=== PATIENT | female | born 1950 ===

== ENCOUNTER 2018-06-15 06:26 | Inpatient (IN) | payer MEDICARE, OTHER ==
[2018-06-15 07:13] LABS: BASO # 0.1 K/uL (0.0-0.2); BASO % 0.4 % (0.0-2.0); EOS # 0.1 K/uL (0.0-0.7); EOS % 0.5 % (0.0-4.0); HEMOGLOBIN 14.8 g/dL (11.0-16.0); LYMPH # 2.4 K/uL (1.0-4.3); LYMPH % 11.4 % (20.0-40.0); MEAN CELL VOLUME 85.4 fL (81.0-99.0); MEAN CORPUSCULAR HEMOGLOBIN 28.4 pg (27.0-31.0); MEAN CORPUSCULAR HGB CONC 33.2 g/dL (33.0-37.0); MEAN PLATELET VOLUME 7.7 fL (7.2-11.7); MONO # 1.3 K/uL (0.0-0.8); MONO % 6.2 % (0.0-10.0); NEUT # 17.5 K/uL (1.8-7.0); NEUT % 81.5 % (50.0-75.0); PLATELET COUNT 311 K/uL (130-400); RBC 5.23 Mil/uL (3.80-5.20); RED CELL DISTRIBUTION WIDTH 13.8 % (11.5-14.5); WHITE BLOOD COUNT 21.5 K/uL (4.8-10.8)
[2018-06-15 07:40] LABS: ALB/GLOB RATIO 1.4 (1.0-2.1); ALBUMIN 4.7 g/dL (3.5-5.0); ALT/SGPT 30 U/L (9-52); AMYLASE 84 U/L (30-110); AST/SGOT 33 U/L (14-36); BLOOD UREA NITROGEN 18 mg/dL (7-17); CALCIUM 9.6 mg/dl (8.6-10.4); GFR NON-AFRICAN AMERICAN > 60; LIPASE 109 U/L (23-300)
--- NOTE | 2018-06-15 07:58 | C.PDOC ---
History Of Present Illness 67 years old female with PMHx of diabetes presents to ED for complaints of diffuse abdominal pain associated with vomiting and diarrhea that began last night. Denies fever, allergies, or recent travel. Patient states she has been no n-compliant with her diabetes medication for the past 2 days. Time Seen by Provider: 06/15/18 07:17 Chief Complaint (Nursing): Abdominal Pain History Per: Patient History/Exam Limitations: no limitations Onset/Duration Of Symptoms: Hrs Location Of Pain/Discomfort: Diffuse Radiation Of Pain To:: None Associated Symptoms: Nausea, Vomiting, Diarrhea. denies: Fever, Chills Exacerbating Factors: None Alleviating Factors: None Last Bowel Movement: Today Recent travel outside of the [place]: No Abnormal Vaginal Bleeding: No Past Medical History Reviewed: Historical Data, Nursing Documentation, Vital Signs Vital Signs: Last Vital Signs Temp 98.5 F 06/15/18 06:38 Pulse 59 L 06/15/18 07:37 Resp 14 06/15/18 07:37 BP 146/63 06/15/18 07:37 Pulse Ox 95 06/15/18 07:37 - Medical History PMH: No Chronic Diseases Denies: Chronic Kidney Disease Surgical History: Family History: States: No Known Family Hx - Social History Hx Alcohol Use: No Hx Substance Use: No - Immunization History Hx Tetanus Toxoid Vaccination: Yes Hx Influenza Vaccination: Yes Hx Pneumococcal Vaccination: Yes Review Of Systems Constitutional: Negative for: Fever, Chills Gastrointestinal: Positive for: Nausea, Vomiting, Abdominal Pain, Diarrhea Skin: Negative for: Rash Neurological: Negative for: Weakness, Numbness Physical Exam - Physical Exam Appears: Non-toxic, No Acute Distress, Other (Uncomfortable ) Skin: Normal Color, Warm, Dry, No Rash Head: Atraumatic, Normacephalic Eye(s): bilateral: Normal Inspection, PERRL, EOMI Oral Mucosa: Moist Neck: Normal ROM, Supple Chest: Symmetrical, No Tenderness Cardiovascular: Rhythm Regular Respiratory: Normal Breath Sounds, No Rales, No Rhonchi, No Wheezing Gastrointestinal/Abdominal: Normal Exam, Bowel Sounds (Active ), Soft, No Tenderness, No Distention, No Guarding, No Rebound Back: Normal Inspection, No CVA Tenderness Extremity: Normal ROM, No Swelling Extremity: Bilateral: Atraumatic, Normal Color And Temperature, Normal ROM Pulses: Left Radial: Normal, Right Radial: Normal Neurological/Psych: Oriented x3, Normal Speech, Normal Motor, Normal Sensation Gait: Steady ED Course And Treatment - Laboratory Results Result Diagrams: 06/15/18 07:05 06/15/18 07:05 O2 Sat by Pulse Oximetry: 95 (RA) Pulse Ox Interpretation: Normal - CT Scan/US Abdomen/Pelvis CT Other Rad Studies (CT/US): Read By Radiologist, Radiology Report Reviewed CT/US Interpretation: Date of service: 06/15/2018. PROCEDURE: CT Abdomen and Pelvis with contrast. HISTORY: abd pain, vomiting. COMPARISON: None. TECHNIQUE: Contrast dose: 100 mL Visipaque 320. Radiation dose: Total exam DLP = 321.99 mGy-cm. This CT exam was performed using one or more of the following dose reduction techniques: Automated exposure control, adjustment of the mA and/or kV according to patient size, and/or use of iterative reconstruction technique. FINDINGS: LOWER THORAX: Unremarkable. LIVER: Unremarkable. No gross lesion or ductal dilatation. GALLBLADDER AND BILE DUCTS: Unremarkable. PANCREAS: Unremarkable. No gross lesion or ductal dilatation. SPLEEN: Unremarkable. ADRENALS: Unremarkable. No mass. KIDNEYS AND URETERS: Unremarkable. No hydronephrosis. No solid mass. VASCULATURE: Unremarkable. No aortic aneurysm. No aortic atherosclerotic calcification or mural plaque present. BOWEL: Unremarkable. No obstruction. No gross mural thickening. APPENDIX: Distension of the appendix up to 9 mm diameter. Enhancing wall. There is both gas and liquid seen within the appendiceal lumen. No significant periappendiceal stranding. Findings concerning for acute appendicitis. No periappendiceal abscess. No evidence of free intraperitoneal air. No appendicoliths identified. PERITONEUM: Unremarkable. No free fluid. No free air. LYMPH NODES: Unremarkable. No enlarged lymph nodes. BLADDER: Unremarkable. REPRODUCTIVE: Normal uterus. BONES: No acute fracture. Grade 1 anterolisthesis at L5-S1, likely degenerative in origin. OTHER FINDINGS: None. IMPRESSION: Findings concerning for uncomplicated acute appendicitis. No other significant abnormality. Medical Decision Making Medical Decision Making: Plan: * Morphine * Pepcid * Toradol * Zofran * Blood Gas * CT Abdomen&Pelvis * Blood work * Urinalysis WBC is elevated with bandemia. will order CT scan CT scan reveals acute appendicitis. The case was discussed with Dr. Tejas Grayson who agrees to admit the patient for possible surgery. Disposition - Disposition Disposition: HOSPITALIZED Disposition Time: 10:00 Condition: STABLE - POA Present On Arrival: None - Clinical Impression Clinical Impression: Acute appendicitis, Leukocytosis - PA / IMPROVEMENT SPEC / Resident Statement MD/DO has reviewed & agrees with the documentation as recorded. - Scribe Statement The provider has reviewed the documentation as recorded by the Fabriceibtorey Lambert All medical record entries made by the Fabriceibtorey were at my direction and personally dictated by me. I have reviewed the chart and agree that the record accurately reflects my personal performance of the history, physical exam, medical decision making, and the department course for this patient. I have also personally directed, reviewed, and agree with the discharge instructions and disposition.
[2018-06-15 08:45] LABS: SQUAMOUS EPITHIAL 4 /hpf (0-5); URINE BACTERIA RARE (<OCC); URINE BILIRUBIN NEGATIVE (NEGATIVE); URINE BLOOD NEGATIVE (NEGATIVE); URINE CLARITY Hazy (Clear); URINE COLOR Yellow (YELLOW); URINE GLUCOSE (UA) 1+ mg/dL (Normal); URINE LEUKOCYTE ESTERASE 1+ Leu/uL (Negative); URINE PROTEIN 1+ mg/dL (NEGATIVE); URINE UROBILINOGEN NORMAL mg/dL (0.2-1.0)
[2018-06-15] MEDS ORDERED: Iodixanol 320 MG/ML 100 ML BOTTLE IV ONE (08:50)
[2018-06-15 08:54] LABS: VENOUS BLOOD GAS BASE EXCESS 2.5 mmol/L (0.0-2.0); VENOUS BLOOD GAS PCO2 53 mmHg (40-60); VENOUS BLOOD GAS PO2 31 mm/Hg (30-55); VENOUS BLOOD PH 7.35 (7.32-7.43)
--- NOTE | 2018-06-15 09:33 | CT ---
Date of service: 06/15/2018 PROCEDURE: CT Abdomen and Pelvis with contrast HISTORY: abd pain, vomiting COMPARISON: None. TECHNIQUE: Contrast dose: 100 mL Visipaque 320 Radiation dose: Total exam DLP = 321.99 mGy-cm. This CT exam was performed using one or more of the following dose reduction techniques: Automated exposure control, adjustment of the mA and/or kV according to patient size, and/or use of iterative reconstruction technique. FINDINGS: LOWER THORAX: Unremarkable. LIVER: Unremarkable. No gross lesion or ductal dilatation. GALLBLADDER AND BILE DUCTS: Unremarkable. PANCREAS: Unremarkable. No gross lesion or ductal dilatation. SPLEEN: Unremarkable. ADRENALS: Unremarkable. No mass. KIDNEYS AND URETERS: Unremarkable. No hydronephrosis. No solid mass. VASCULATURE: Unremarkable. No aortic aneurysm. No aortic atherosclerotic calcification or mural plaque present. BOWEL: Unremarkable. No obstruction. No gross mural thickening. APPENDIX: Distension of the appendix up to 9 mm diameter. Enhancing wall. There is both gas and liquid seen within the appendiceal lumen. No significant periappendiceal stranding. Findings concerning for acute appendicitis. No periappendiceal abscess. No evidence of free intraperitoneal air. No appendicoliths identified. PERITONEUM: Unremarkable. No free fluid. No free air. LYMPH NODES: Unremarkable. No enlarged lymph nodes. BLADDER: Unremarkable. REPRODUCTIVE: Normal uterus BONES: No acute fracture. Grade 1 anterolisthesis at L5-S1, likely degenerative in origin. OTHER FINDINGS: None. IMPRESSION: Findings concerning for uncomplicated acute appendicitis. No other significant abnormality.
[2018-06-15 09:57] LABS: BANDS 9 % (0-2); EOSINOPHIL 1 % (0-4); LYMPHOCYTE 12 % (20-40); MONOCYTE 5 % (0-10); NEUTROPHIL 72 % (50-75); REACTIVE LYMPHOCYTES 1 % (0-0); TOTAL CELLS COUNTED 100
[2018-06-15 09:58] LABS: PLATELET ESTIMATE NORMAL (NORMAL)
[2018-06-15] MEDS ORDERED: Piperacillin/Tazobact 3.375 gm 100 ML IV STA (10:16)
[2018-06-15] MEDS ORDERED: Piperacillin/Tazobact 3.375 gm 100 ML IVPB ONE (10:42)
--- NOTE | 2018-06-15 11:08 | CP.PCM.HP ---
<Remberto Latham Aria - Last Filed: 06/15/18 11:02> History of Present Illness - History of Present Illness History of Present Illness: General Surgery: Dr Grayson Pt is a 67F with PMH of diabetes type II. Presents to ED with acute onset abdominal pain. Pt reports she woke up around 1am with sharp RLQ pain. She immediately began to vomit, non-billious and non-bloody. This was subsequently followed by multiple episodes of diarrhea with continued 9/10 pain prompting her ED visit. Pt states pain located primarily in RLQ but does radiate up to RUQ and epigastric region. Her vomiting has subsided at this point. Denies any fevers, chills, sob or chest pain. PMH: DM2 PSH: x 2 NKDA Unknown PCP Present on Admission - Present on Admission Any Indicators Present on Admission: No History of DVT/PE: No Urinary Catheter: No Decubitus Ulcer Present: No Review of Systems - Review of Systems All systems: reviewed and no additional remarkable complaints except (as per hpi) Past Patient History - Infectious Disease Hx of Infectious Diseases: None - Past Social History Smoking Status: Never Smoked - CARDIAC Hx Cardiac Disorders: No - PULMONARY Hx Respiratory Disorders: No - NEUROLOGICAL Hx Neurological Disorder: No - HEENT Hx HEENT Problems: No - RENAL Hx Chronic Kidney Disease: No - ENDOCRINE/METABOLIC Hx Diabetes Mellitus Type 2: Yes - HEMATOLOGICAL/ONCOLOGICAL Hx Blood Disorders: No - INTEGUMENTARY Hx Dermatological Problems: No - MUSCULOSKELETAL/RHEUMATOLOGICAL Hx Musculoskeletal Disorders: No - GASTROINTESTINAL Hx Gastrointestinal Disorders: No - GENITOURINARY/GYNECOLOGICAL Hx Genitourinary Disorders: No - PSYCHIATRIC Hx Substance Use: No - SURGICAL HISTORY Hx Surgeries: Yes Hx Section: Yes - ANESTHESIA Hx Anesthesia: Yes Hx Anesthesia Reactions: No Meds Allergies/Adverse Reactions: Allergies Allergy/AdvReac Type Severity Reaction Status Date / Time No Known Allergies Allergy Verified 06/15/18 06:41 Physical Exam - Constitutional Appears: Non-toxic, No Acute Distress - Head Exam Head Exam: NORMAL INSPECTION - Eye Exam Eye Exam: Normal appearance - ENT Exam ENT Exam: Mucous Membranes Dry - Respiratory Exam Respiratory Exam: absent: Accessory Muscle Use, Respiratory Distress - Cardiovascular Exam Cardiovascular Exam: REGULAR RHYTHM - GI/Abdominal Exam GI & Abdominal Exam: Soft, Tenderness (RLQ, -rebound, -rosvings). absent: Distended, Firm, Guarding, Hernia, Rigid - Extremities Exam Extremities exam: Negative for: pedal edema - Neurological Exam Neurological exam: Alert, Oriented x3 - Psychiatric Exam Psychiatric exam: Normal Affect, Normal Mood Results - Vital Signs Recent Vital Signs: Last Vital Signs Temp 98.5 F 06/15/18 06:38 Pulse 59 L 06/15/18 07:37 Resp 14 06/15/18 07:37 BP 146/63 06/15/18 07:37 Pulse Ox 95 06/15/18 09:41 - Labs Result Diagrams: 06/15/18 07:05 06/15/18 07:05 Labs: Laboratory Results - last 24 hr 06/15/18 06/15/18 06/15/18 06:42 07:05 07:05 WBC 21.5 H RBC 5.23 H Hgb 14.8 Hct 44.7 MCV 85.4 MCH 28.4 MCHC 33.2 RDW 13.8 Plt Count 311 MPV 7.7 Neut % (Auto) 81.5 H Lymph % (Auto) 11.4 L Lewis % (Auto) 6.2 Eos % (Auto) 0.5 Baso % (Auto) 0.4 Neut # (Auto) 17.5 H Lymph # (Auto) 2.4 Lewis # (Auto) 1.3 H Eos # (Auto) 0.1 Baso # (Auto) 0.1 Neutrophils % (Manual) 72 Band Neutrophils % 9 H Lymphocytes % (Manual) 12 L Reactive Lymphs % 1 H Monocytes % (Manual) 5 Eosinophils % (Manual) 1 Platelet Estimate Normal RBC Morphology Normal pO2 VBG pH VBG pCO2 VBG HCO3 VBG Total CO2 VBG O2 Sat (Calc) VBG Base Excess VBG Potassium Glucose Lactate Sodium 139 Potassium 3.2 L Chloride 99 Carbon Dioxide 26 Anion Gap 17 BUN 18 H Creatinine 0.6 L Est GFR ( Amer) > 60 Est GFR (Non-Af Amer) > 60 POC Glucose (mg/dL) 246 H Random Glucose 237 H Calcium 9.6 Total Bilirubin 0.3 AST 33 ALT 30 Alkaline Phosphatase 163 H Total Protein 8.2 Albumin 4.7 Globulin 3.5 Albumin/Globulin Ratio 1.4 Amylase 84 Lipase 109 Venous Blood Potassium Urine Color Urine Clarity Urine pH Ur Specific [place] Urine Protein Urine Glucose (UA) Urine Ketones Urine Blood Urine Nitrate Urine Bilirubin Urine Urobilinogen Ur Leukocyte Esterase Urine WBC (Auto) Ur Squamous Epith Cells Urine Bacteria 06/15/18 06/15/18 08:33 08:51 WBC RBC Hgb Hct MCV MCH MCHC RDW Plt Count MPV Neut % (Auto) Lymph % (Auto) Lewis % (Auto) Eos % (Auto) Baso % (Auto) Neut # (Auto) Lymph # (Auto) Lewis # (Auto) Eos # (Auto) Baso # (Auto) Neutrophils % (Manual) Band Neutrophils % Lymphocytes % (Manual) Reactive Lymphs % Monocytes % (Manual) Eosinophils % (Manual) Platelet Estimate RBC Morphology pO2 31 VBG pH 7.35 VBG pCO2 53 VBG HCO3 25.7 VBG Total CO2 30.9 H VBG O2 Sat (Calc) 57.1 VBG Base Excess 2.5 H VBG Potassium 3.8 Glucose 229 H Lactate 2.3 H Sodium 141.0 Potassium Chloride 102.0 Carbon Dioxide Anion Gap BUN Creatinine Est GFR ( Amer) Est GFR (Non-Af Amer) POC Glucose (mg/dL) Random Glucose Calcium Total Bilirubin AST ALT Alkaline Phosphatase Total Protein Albumin Globulin Albumin/Globulin Ratio Amylase Lipase Venous Blood Potassium 3.8 Urine Color Yellow Urine Clarity Hazy Urine pH 5.0 Ur Specific [place] 1.021 Urine Protein 1+ H Urine Glucose (UA) 1+ Urine Ketones Negative Urine Blood Negative Urine Nitrate Negative Urine Bilirubin Negative Urine Urobilinogen Normal Ur Leukocyte Esterase 1+ H Urine WBC (Auto) 11 H Ur Squamous Epith Cells 4 Urine Bacteria Rare Assessment & Plan - Assessment and Plan (Free Text) Assessment: 67F with acute appendicitis Plan: admit NPO IVF K replacement type and screen, coags, ekg, CXR plan for OR for lap appendectomy d/w attending Noa, PGY4 <Tejas Grayson - Last Filed: 06/15/18 12:30> Results - Vital Signs Recent Vital Signs: Last Vital Signs Temp 98.5 F 06/15/18 11:24 Pulse 93 H 06/15/18 11:24 Resp 18 06/15/18 11:24 BP 106/63 06/15/18 11:24 Pulse Ox 100 06/15/18 11:24 - Labs Result Diagrams: 06/15/18 07:05 06/15/18 07:05 Labs: Laboratory Results - last 24 hr 1206/15/18 06/15/18 06:42 07:05 07:05 WBC 21.5 H RBC 5.23 H Hgb 14.8 Hct 44.7 MCV 85.4 MCH 28.4 MCHC 33.2 RDW 13.8 Plt Count 311 MPV 7.7 Neut % (Auto) 81.5 H Lymph % (Auto) 11.4 L Lewis % (Auto) 6.2 Eos % (Auto) 0.5 Baso % (Auto) 0.4 Neut # (Auto) 17.5 H Lymph # (Auto) 2.4 Lewis # (Auto) 1.3 H Eos # (Auto) 0.1 Baso # (Auto) 0.1 Neutrophils % (Manual) 72 Band Neutrophils % 9 H Lymphocytes % (Manual) 12 L Reactive Lymphs % 1 H Monocytes % (Manual) 5 Eosinophils % (Manual) 1 Platelet Estimate Normal RBC Morphology Normal pO2 VBG pH VBG pCO2 VBG HCO3 VBG Total CO2 VBG O2 Sat (Calc) VBG Base Excess VBG Potassium Glucose Lactate Sodium 139 Potassium 3.2 L Chloride 99 Carbon Dioxide 26 Anion Gap 17 BUN 18 H Creatinine 0.6 L Est GFR ( Amer) > 60 Est GFR (Non-Af Amer) > 60 POC Glucose (mg/dL) 246 H Random Glucose 237 H Calcium 9.6 Total Bilirubin 0.3 AST 33 ALT 30 Alkaline Phosphatase 163 H Total Protein 8.2 Albumin 4.7 Globulin 3.5 Albumin/Globulin Ratio 1.4 Amylase 84 Lipase 109 Venous Blood Potassium Urine Color Urine Clarity Urine pH Ur Specific [place] Urine Protein Urine Glucose (UA) Urine Ketones Urine Blood Urine Nitrate Urine Bilirubin Urine Urobilinogen Ur Leukocyte Esterase Urine WBC (Auto) Ur Squamous Epith Cells Urine Bacteria Blood Type Antibody Screen 06/15/18 06/15/18 06/15/18 08:33 08:51 11:04 WBC RBC Hgb Hct MCV MCH MCHC RDW Plt Count MPV Neut % (Auto) Lymph % (Auto) Lewis % (Auto) Eos % (Auto) Baso % (Auto) Neut # (Auto) Lymph # (Auto) Lewis # (Auto) Eos # (Auto) Baso # (Auto) Neutrophils % (Manual) Band Neutrophils % Lymphocytes % (Manual) Reactive Lymphs % Monocytes % (Manual) Eosinophils % (Manual) Platelet Estimate RBC Morphology pO2 31 VBG pH 7.35 VBG pCO2 53 VBG HCO3 25.7 VBG Total CO2 30.9 H VBG O2 Sat (Calc) 57.1 VBG Base Excess 2.5 H VBG Potassium 3.8 Glucose 229 H Lactate 2.3 H Sodium 141.0 Potassium Chloride 102.0 Carbon Dioxide Anion Gap BUN Creatinine Est GFR ( Amer) Est GFR (Non-Af Amer) POC Glucose (mg/dL) Random Glucose Calcium Total Bilirubin AST ALT Alkaline Phosphatase Total Protein Albumin Globulin Albumin/Globulin Ratio Amylase Lipase Venous Blood Potassium 3.8 Urine Color Yellow Urine Clarity Hazy Urine pH 5.0 Ur Specific [place] 1.021 Urine Protein 1+ H Urine Glucose (UA) 1+ Urine Ketones Negative Urine Blood Negative Urine Nitrate Negative Urine Bilirubin Negative Urine Urobilinogen Normal Ur Leukocyte Esterase 1+ H Urine WBC (Auto) 11 H Ur Squamous Epith Cells 4 Urine Bacteria Rare Blood Type O POSITIVE Antibody Screen Negative Assessment & Plan - Assessment and Plan (Free Text) Plan: Patient seen and examined independent of resident staff. CT imaging personally reviewed. Agree with above assessment and plan. [address] confirmed acute appendicitis, leukocytosis of 21. Recommend laparoscopic appendectomy. Risks and benefits of surgery discussed with patient including, bleeding, infection, abscess, bowel obstruction or injury. Patient understands these risks and all questions answered. Informed consent signed at bedside.
[2018-06-15] MEDS ORDERED: Potassium Chloride 20 mEq 100 ML ONE (11:12)
[2018-06-15] MEDS ORDERED: Lactated Ringer's 1,000 ML ONE (11:12)
[2018-06-15] MEDS: Lactated Ringer's 1,000 ML IV SCH ×2 (11:18→21:23)
[2018-06-15] MEDS ORDERED: Propofol 10 mg/ml Inj (20 ML) ONE (12:05)
[2018-06-15] MEDS ORDERED: Midazolam 2 MG/2 ML VIAL ONE (12:05)
[2018-06-15] MEDS ORDERED: Neostigmine Methylsulfate 3mg/3ml Syringe IV ONE (12:10)
[2018-06-15] MEDS ORDERED: Lidocaine Hydrochloride 5 ML INJ ONE (12:10)
[2018-06-15] MEDS ORDERED: Succinylcholine Chloride 20 mg/ml Syr (5 ml) IV ONE (12:10)
[2018-06-15] MEDS ORDERED: Rocuronium 10 mg/ml (5 ml) ONE (12:10)
[2018-06-15] MEDS ORDERED: Phenylephrine 10 mg/ml Inj ONE (12:11)
--- NOTE | 2018-06-15 12:25 | RAD ---
Date of service: 06/15/2018 HISTORY: pre-op COMPARISON: No prior. FINDINGS: LUNGS: No active pulmonary disease. PLEURA: No significant pleural effusion identified, no pneumothorax apparent. CARDIOVASCULAR: No aortic atherosclerotic calcification present. Normal cardiac size. No pulmonary vascular congestion. OSSEOUS STRUCTURES: No significant abnormalities. VISUALIZED UPPER ABDOMEN: Normal. OTHER FINDINGS: None. IMPRESSION: No active disease.
[2018-06-15] MEDS ORDERED: Lidocaine/Epinephrine 1% 1:100000 10 ML IJ ONE (12:35)
[2018-06-15] MEDS ORDERED: ceFAZolin 1 gm in NS 1 GM/100 ML BAG IVPB ONE ×2 (12:35→12:54)
[2018-06-15] MEDS ORDERED: Bupivacaine 0.25% 20 ML INJ IJ ONE (12:35)
[2018-06-15] MEDS ORDERED: HYDROmorphone 0.5 mg/0.5 ml ISec IVP PRN (13:53)
--- NOTE | 2018-06-15 13:53 | PCM.SURG1 ---
Surgeon's Initial Post Op Note - Surgeon's Notes Surgeon: Dr. Tejas Grayson Associate Counsel: Dr. Roa PGY1 Type of Anesthesia: General Endo Pre-Operative Diagnosis: acute appendicitis Operative Findings: see operative note Post-Operative Diagnosis: same Operation Performed: laparoscopic appendectomy Specimen/Specimens Removed: appendix Estimated Blood Loss: EBL {In ML}: 5 Blood Products Given: N/A Drains Used: No Drains Post-Op Condition: Good Date of Surgery/Procedure: 06/15/18 Time of Surgery/Procedure: 13:53
--- NOTE | 2018-06-15 14:17 | CP.PCM.CON ---
History of Present Illness - History of Present Illness History of Present Illness: PGY-[address] Cortes Patient is a 67 year old F with PMHx of DM type II presenting s/p lap appendectomy. Patient came to ED and complained of acute onset RLQ abdominal pain that began late last night, rated 9/10 in severity, with radiation to RUQ and epigastric region. Pain was associated with several bouts of NBNB vomiting as well as diffuse watery diarrhea. Post-op, pain is under control. Patient endo rses that vomiting has resolved, however continues to have episodes of diarrhea. Otherwise, no acute somatic complaints at this time. Denies fevers/chills, headaches, dizziness, chest pain, palpitations, sob, cough, nausea, constipation, melena, hematochezia, or dysuria. PMHx: DM PSHx: x 2 Allergies: NKDA Home Medications: Alogliptin 25 mg PO dailyy, Glimeperide 4 mg PO FHx: noncontributory Social Hx: denies alcohol, tobacco, illicit drug use PMD: Dr. Carola Valencia Review of Systems - Review of Systems All systems: reviewed and no additional remarkable complaints except Review of Systems: as per HPI Past Patient History - Infectious Disease Hx of Infectious Diseases: None - Past Social History Smoking Status: Never Smoked - CARDIAC Hx Cardiac Disorders: No - PULMONARY Hx Respiratory Disorders: No - NEUROLOGICAL Hx Neurological Disorder: No - HEENT Hx HEENT Problems: No - RENAL Hx Chronic Kidney Disease: No - ENDOCRINE/METABOLIC Hx Diabetes Mellitus Type 2: Yes - HEMATOLOGICAL/ONCOLOGICAL Hx Blood Disorders: No - INTEGUMENTARY Hx Dermatological Problems: No - MUSCULOSKELETAL/RHEUMATOLOGICAL Hx Musculoskeletal Disorders: No - GASTROINTESTINAL Hx Gastrointestinal Disorders: No - GENITOURINARY/GYNECOLOGICAL Hx Genitourinary Disorders: No - PSYCHIATRIC Hx Substance Use: No - SURGICAL HISTORY Hx Surgeries: Yes Hx Section: Yes - ANESTHESIA Hx Anesthesia: Yes Hx Anesthesia Reactions: No Meds Allergies/Adverse Reactions: Allergies Allergy/AdvReac Type Severity Reaction Status Date / Time No Known Allergies Allergy Verified 06/15/18 06:41 - Medications Medications: Current Medications Hydromorphone HCl (Dilaudid) 0.5 mg IVP Q10M PRN PRN Reason: Pain, moderate (4-7) Stop: 06/15/18 15:53 Piperacillin Sod/Tazobactam Sod (Zosyn 3.375 Gm Iv Premix) 3.375 gm in 50 mls @ 200 mls/hr IVPB Q6H MAE; Protocol Lactated Ringer's (Lactated Ringer's) 1,000 mls @ 100 mls/hr IV .Q10H MAE Last Admin: 06/15/18 11:18 Dose: 100 mls/hr Potassium Chloride (Potassium Chloride 20 Meq/100 Ml) 20 meq in 100 mls @ 50 mls/hr IVPB ONCE MAE Stop: 06/16/18 15:59 Ketorolac Tromethamine (Toradol) 30 mg IVP Q6 MAE Ondansetron HCl (Zofran Inj) 4 mg IVP ONCE PRN PRN Reason: Nausea/Vomiting Stop: 06/15/18 15:54 Oxycodone/Acetaminophen (Percocet 5/325 Mg Tab) 1 tab PO Q6H PRN PRN Reason: Pain, moderate (4-7) Stop: 06/18/18 13:56 Physical Exam - Constitutional Appears: Non-toxic, No Acute Distress - Head Exam Head Exam: ATRAUMATIC, NORMAL INSPECTION, NORMOCEPHALIC - Eye Exam Eye Exam: EOMI, Normal appearance, PERRL Pupil Exam: NORMAL ACCOMODATION - ENT Exam ENT Exam: Mucous Membranes Moist, Normal Exam - Neck Exam Neck exam: Positive for: Full Rom, Normal Inspection - Respiratory Exam Respiratory Exam: Clear to Auscultation Bilateral, NORMAL BREATHING PATTERN. absent: Accessory Muscle Use, Rales, Rhonchi, Wheezes, Respiratory Distress, Stridor - Cardiovascular Exam Cardiovascular Exam: REGULAR RHYTHM, +S1, +S2 - GI/Abdominal Exam GI & Abdominal Exam: Normal Bowel Sounds, Soft, Tenderness (mild TTP RLQ). absent: Distended, Firm, Guarding, Hernia, Rebound - Extremities Exam Extremities exam: Positive for: normal capillary refill, normal inspection, pedal pulses present. Negative for: calf tenderness, joint swelling, pedal edema - Neurological Exam Neurological exam: Alert, Oriented x3 - Psychiatric Exam Psychiatric exam: Normal Affect, Normal Mood - Skin Skin Exam: Dry, Intact, Normal Color, Warm Results - Vital Signs Recent Vital Signs: Last Vital Signs Temp 97.6 F 06/15/18 13:53 Pulse 86 06/15/18 14:08 Resp 14 12/22/18 14:08 BP 100/53 L 06/15/18 14:08 Pulse Ox 99 06/15/18 14:08 - Labs Result Diagrams: 06/15/18 07:05 06/15/18 07:05 Labs: Laboratory Results - last 24 hr 06/15/18 06/15/18 06/15/18 06:42 07:05 07:05 WBC 21.5 H RBC 5.23 H Hgb 14.8 Hct 44.7 MCV 85.4 MCH 28.4 MCHC 33.2 RDW 13.8 Plt Count 311 MPV 7.7 Neut % (Auto) 81.5 H Lymph % (Auto) 11.4 L [place] % (Auto) 6.2 Eos % (Auto) 0.5 Baso % (Auto) 0.4 Neut # (Auto) 17.5 H Lymph # (Auto) 2.4 [place] # (Auto) 1.3 H Eos # (Auto) 0.1 Baso # (Auto) 0.1 Neutrophils % (Manual) 72 Band Neutrophils % 9 H Lymphocytes % (Manual) 12 L Reactive Lymphs % 1 H Monocytes % (Manual) 5 Eosinophils % (Manual) 1 Platelet Estimate Normal RBC Morphology Normal pO2 VBG pH VBG pCO2 VBG HCO3 VBG Total CO2 VBG O2 Sat (Calc) VBG Base Excess VBG Potassium Glucose Lactate Sodium 139 Potassium 3.2 L Chloride 99 Carbon Dioxide 26 Anion Gap 17 BUN 18 H Creatinine 0.6 L Est GFR ( Amer) > 60 Est GFR (Non-Af Amer) > 60 POC Glucose (mg/dL) 246 H Random Glucose 237 H Calcium 9.6 Total Bilirubin 0.3 AST 33 ALT 30 Alkaline Phosphatase 163 H Total Protein 8.2 Albumin 4.7 Globulin 3.5 Albumin/Globulin Ratio 1.4 Amylase 84 Lipase 109 Venous Blood Potassium Urine Color Urine Clarity Urine pH Ur Specific [place] Urine Protein Urine Glucose (UA) Urine Ketones Urine Blood Urine Nitrate Urine Bilirubin Urine Urobilinogen Ur Leukocyte Esterase Urine WBC (Auto) Ur Squamous Epith Cells Urine Bacteria Blood Type Antibody Screen 06/15/18 06/15/18 06/15/18 08:33 08:51 11:04 WBC RBC Hgb Hct MCV MCH MCHC RDW Plt Count MPV Neut % (Auto) Lymph % (Auto) [place] % (Auto) Eos % (Auto) Baso % (Auto) Neut # (Auto) Lymph # (Auto) [place] # (Auto) Eos # (Auto) Baso # (Auto) Neutrophils % (Manual) Band Neutrophils % Lymphocytes % (Manual) Reactive Lymphs % Monocytes % (Manual) Eosinophils % (Manual) Platelet Estimate RBC Morphology pO2 31 VBG pH 7.35 VBG pCO2 53 VBG HCO3 25.7 VBG Total CO2 30.9 H VBG O2 Sat (Calc) 57.1 VBG Base Excess 2.5 H VBG Potassium 3.8 Glucose 229 H Lactate 2.3 H Sodium 141.0 Potassium Chloride 102.0 Carbon Dioxide Anion Gap BUN Creatinine Est GFR ( Amer) Est GFR (Non-Af Amer) POC Glucose (mg/dL) Random Glucose Calcium Total Bilirubin AST ALT Alkaline Phosphatase Total Protein Albumin Globulin Albumin/Globulin Ratio Amylase Lipase Venous Blood Potassium 3.8 Urine Color Yellow Urine Clarity Hazy Urine pH 5.0 Ur Specific [place] 1.021 Urine Protein 1+ H Urine Glucose (UA) 1+ Urine Ketones Negative Urine Blood Negative Urine Nitrate Negative Urine Bilirubin Negative Urine Urobilinogen Normal Ur Leukocyte Esterase 1+ H Urine WBC (Auto) 11 H Ur Squamous Epith Cells 4 Urine Bacteria Rare Blood Type O POSITIVE Antibody Screen Negative Assessment & Plan - Assessment and Plan (Free Text) Assessment: 67 year old F with PMHx of DM presenting s/p lap appendectomy, being consulted for medical management. Plan: Acute appendicitis, s/p lap appendectomy -CXR (06/15): no acute findings -CT abdomen/pelvis w/ contrast (06/15): Distention of appendix up to 9 mm. No periappendiceal stranding. Findings concerning for uncomplicated acute appendicitis. No periappendiceal abscess, no evidence of free intraperitoneal air, no appendicolith noted. -morning labs -Lactated ringer @ 100cc/hr -K replacement -toradol 30 mg IVP q6h MAE -Percocet 1 tab PO q6h PRN -zosyn q6h DM -home meds held -f/u A1C -ISS medium -accuchecks ACHS -hypoglycemic protocol PPx, Diet, Disposition -DVT ppx: scds -Diet: diabetic consistent diet Case discussed with Dr. Sebastian Preciado DO, PGY-1
[2018-06-15 15:12] VITALS: RESP 20
[2018-06-15] MEDS ORDERED: Glucagon Recombinant 1 mg Inj IM PRN (15:17)
[2018-06-15] MEDS ORDERED: Dextrose 50% SYRINGE Inj (50 ml) IV PRN (15:17)
[2018-06-15] MEDS: (Novolin R) Insulin Human Regular 100 units/ml vial SC SCH ×2 (17:39→21:52)
[2018-06-15] MEDS: Piperacill/Tazo 3.375gm in Dex 3.375 GM/50 ML BAG IVPB SCH ×2 (19:05→21:26)
[2018-06-16] MEDS: Oxycodone/Acetaminophen 5/325 mg Tab PO PRN ×2 (00:35→08:51)
[2018-06-16] MEDS: Piperacill/Tazo 3.375gm in Dex 3.375 GM/50 ML BAG IVPB SCH ×2 (03:00→09:24)
[2018-06-16 05:54] LABS: VENOUS BLOOD GAS BASE EXCESS 3.4 mmol/L (0.0-2.0); VENOUS BLOOD GAS PCO2 44 mmHg (40-60); VENOUS BLOOD GAS PO2 54 mm/Hg (30-55); VENOUS BLOOD PH 7.42 (7.32-7.43)
[2018-06-16] MEDS: Lactated Ringer's 1,000 ML IV SCH (07:41)
[2018-06-16 08:11] VITALS: BP 119/68; PULSE 71; TEMP 97.9; O2SAT 95
--- NOTE | 2018-06-16 08:20 | CP.PCM.PN ---
<Monty Preciado - Last Filed: 06/16/18 11:20> Subjective - Date & Time of Evaluation Date of Evaluation: 06/16/18 Time of Evaluation: 08:20 - Subjective Subjective: PGY-1 Medicine Progress Note for Dr. Meza Patient seen and examined this AM, s/p lap appendectomy. No acute overnight events reported. Patient endorses mild tenderness along surgical incision site, had one episode of nonbloody diarrhea this morning. Otherwise no acute somatic complaints at this time. Denies fevers/chills, headaches, chest pain, palpitations, sob, cough, n/v, constipation. Objective - Vital Signs/Intake and Output Vital Signs (last 24 hours): Temp Pulse Resp BP Pulse Ox 97.9 F 71 20 119/68 95 06/16/18 07:00 06/16/18 07:00 06/16/18 07:00 06/16/18 07:00 06/16/18 07:00 Intake and Output: 06/16/18 06/16/18 06:59 18:59 Intake Total 1850 Balance 1850 - Medications Medications: Current Medications Dextrose (Dextrose 50% Inj) 0 ml IV STAT PRN; Protocol PRN Reason: Hypoglycemia Protocol Dextrose (Glutose 15) 0 gm PO ONCE PRN; Protocol PRN Reason: Hypoglycemia Protocol Glimepiride (Amaryl) 4 mg PO BID MAE Last Admin: 06/15/18 17:22 Dose: 4 mg Glucagon (Glucagen Diagnostic Kit) 0 mg IM STAT PRN; Protocol PRN Reason: Hypoglycemia Protocol Piperacillin Sod/Tazobactam Sod (Zosyn 3.375 Gm Iv Premix) 3.375 gm in 50 mls @ 200 mls/hr IVPB Q6H AME; Protocol Last Admin: 06/16/18 03:00 Dose: 200 mls/hr Potassium Chloride (Potassium Chloride 20 Meq/100 Ml) 20 meq in 100 mls @ 50 mls/hr IVPB ONCE MAE Stop: 06/16/18 15:59 Last Admin: 06/15/18 15:08 Dose: 50 mls/hr Dextrose (Dextrose 5% In Water 1000 Ml) 1,000 mls @ 0 mls/hr IV .Q0M PRN; Protocol PRN Reason: Hypoglycemia Protocol Insulin Human Regular (Novolin R) 0 unit SC ACHS MAE; Protocol Last Admin: 06/15/18 21:52 Dose: Not Given Ketorolac Tromethamine (Toradol) 30 mg IVP Q6 PRN PRN Reason: Pain, moderate (4-7) Last Admin: 06/15/18 17:23 Dose: 30 mg Oxycodone/Acetaminophen (Percocet 5/325 Mg Tab) 1 tab PO Q6H PRN PRN Reason: Pain, moderate (4-7) Stop: 06/18/18 13:56 Last Admin: 06/16/18 00:35 Dose: 1 tab Sitagliptin Phosphate (Januvia) 100 mg PO DAILY [facility] - Labs Labs: 06/15/18 07:05 06/15/18 07:05 - Constitutional Appears: Non-toxic, No Acute Distress - Head Exam Head Exam: ATRAUMATIC, NORMAL INSPECTION, NORMOCEPHALIC - Eye Exam Eye Exam: EOMI, Normal appearance, PERRL Pupil Exam: NORMAL ACCOMODATION - ENT Exam ENT Exam: Mucous Membranes Moist, Normal Exam - Neck Exam Neck Exam: Full ROM, Normal Inspection - Respiratory Exam Respiratory Exam: Clear to Ausculation Bilateral, NORMAL BREATHING PATTERN. absent: Accessory Muscle Use, Rales, Rhonchi, Wheezes, Respiratory Distress, Stridor - Cardiovascular Exam Cardiovascular Exam: REGULAR RHYTHM, +S1, +S2 - GI/Abdominal Exam GI & Abdominal Exam: Soft, Tenderness (mild along incision site), Normal Bowel Sounds. absent: Distended, Firm, Guarding, Rigid Additional comments: incisions clean, dry and intact. - Extremities Exam Extremities Exam: Full ROM, Normal Capillary Refill, Normal Inspection. absent: Calf Tenderness, Pedal Edema - Back Exam Back Exam: NORMAL INSPECTION - Neurological Exam Neurological Exam: Alert, Awake, Oriented x3 - Psychiatric Exam Psychiatric exam: Normal Affect, Normal Mood - Skin Skin Exam: Dry, Intact, Normal Color, Warm Assessment and Plan - Assessment and Plan (Free Text) Assessment: 67 year old F with PMHx of DM presenting s/p lap appendectomy, being consulted for medical management. Plan: Acute appendicitis, s/p lap appendectomy -CXR (06/15): no acute findings -CT abdomen/pelvis w/ contrast (06/15): Distention of appendix up to 9 mm. No periappendiceal stranding. Findings concerning for uncomplicated acute appendicitis. No periappendiceal abscess, no evidence of free intraperitoneal air, no appendicolith noted. -Lactated ringer @ 100cc/hr -toradol 30 mg IVP q6h MAE -Percocet 1 tab PO q6h PRN -zosyn q6h DM -A1C 8.6 -ISS medium -patient restarted on home meds, januvia and glimperide -accuchecks ACHS -hypoglycemic protocol PPx, Diet, Disposition -DVT ppx: scds -Diet: diabetic consistent diet -Disposition: Patient is medically stable at this time. She has been instructed to follow up with her primary care provider within a week of discharge for continued monitoring of her glucose and medication control. She has also been instructed to follow up with General Surgery within 1-2 weeks of discharge. Please reconsult, as necessary. Thank you! Case discussed with Dr. Susana Preciado DO, PGY-1 <Kuldip Meza - Last Filed: 06/16/18 12:17> Objective - Vital Signs/Intake and Output Vital Signs (last 24 hours): Temp Pulse Resp BP Pulse Ox 97.9 F 71 20 119/68 95 06/16/18 07:00 06/16/18 07:00 06/16/18 07:00 06/16/18 07:00 06/16/18 07:00 Intake and Output: 06/16/18 06/16/18 06:59 18:59 Intake Total 1850 Balance 1850 - Medications Medications: Current Medications Dextrose (Dextrose 50% Inj) 0 ml IV STAT PRN; Protocol PRN Reason: Hypoglycemia Protocol Dextrose (Glutose 15) 0 gm PO ONCE PRN; Protocol PRN Reason: Hypoglycemia Protocol Glimepiride (Amaryl) 4 mg PO BID MAE Last Admin: 06/16/18 09:24 Dose: 4 mg Glucagon (Glucagen Diagnostic Kit) 0 mg IM STAT PRN; Protocol PRN Reason: Hypoglycemia Protocol Piperacillin Sod/Tazobactam Sod (Zosyn 3.375 Gm Iv Premix) 3.375 gm in 50 mls @ 200 mls/hr IVPB Q6H MAE; Protocol Last Admin: 06/16/18 09:24 Dose: 200 mls/hr Potassium Chloride (Potassium Chloride 20 Meq/100 Ml) 20 meq in 100 mls @ 50 mls/hr IVPB ONCE MAE Stop: 06/16/18 15:59 Last Admin: 06/15/18 15:08 Dose: 50 mls/hr Dextrose (Dextrose 5% In Water 1000 Ml) 1,000 mls @ 0 mls/hr IV .Q0M PRN; Protocol PRN Reason: Hypoglycemia Protocol Insulin Human Regular (Novolin R) 0 unit SC ACHS MAE; Protocol Last Admin: 06/16/18 08:30 Dose: 2 u Ketorolac Tromethamine (Toradol) 30 mg IVP Q6 PRN PRN Reason: Pain, moderate (4-7) Last Admin: 06/15/18 17:23 Dose: 30 mg Oxycodone/Acetaminophen (Percocet 5/325 Mg Tab) 1 tab PO Q6H PRN PRN Reason: Pain, moderate (4-7) Stop: 06/18/18 13:56 Last Admin: 06/16/18 08:51 Dose: 1 tab Sitagliptin Phosphate (Januvia) 100 mg PO DAILY MAE Last Admin: 06/16/18 09:34 Dose: 100 mg - Labs Labs: 06/16/18 08:09 06/16/18 08:09 Attending/Attestation - Attestation I have personally seen and examined this patient.: Yes I have fully participated in the care of the patient.: Yes I have reviewed all pertinent clinical information, including history, physical exam and plan: Yes Notes (Text): 06/16/18 12:14 Medical consult: Patient was seen and examined by me. Agree with the above note by the resident The patient was not in any acute distress when we came and saw her. The patient reported she did have a BM Also the WBC has decreased as well to 8, and her Hgb is stable On physical exam there is no bleeding, areas of inscion look clean, dry Patient is aware she should follow up with her primary physician and surgery team Kuldip Meza
[2018-06-16] MEDS: (Novolin R) Insulin Human Regular 100 units/ml vial SC SCH (08:30)
[2018-06-16 08:36] LABS: BLOOD UREA NITROGEN 15 mg/dL (7-17); CALCIUM 8.2 mg/dl (8.6-10.4); GFR NON-AFRICAN AMERICAN > 60
[2018-06-16 08:40] LABS: MEAN CELL VOLUME 85.8 fL (81.0-99.0); MEAN CORPUSCULAR HEMOGLOBIN 29.7 pg (27.0-31.0); MEAN CORPUSCULAR HGB CONC 34.6 g/dL (33.0-37.0); MEAN PLATELET VOLUME 8.3 fL (7.2-11.7); RED CELL DISTRIBUTION WIDTH 14.2 % (11.5-14.5)
[2018-06-16] MEDS ORDERED: Potassium Chloride 20 mEq ER Tab PO ONE (08:46)
[2018-06-16 08:47] LABS: WHITE BLOOD COUNT 8.7 K/uL (4.8-10.8)
[2018-06-16 08:48] LABS: HEMOGLOBIN 11.9 g/dL (11.0-16.0)
--- NOTE | 2018-06-16 10:16 | CP.PCM.DIS ---
Provider - Provider Date of Admission: 06/15/18 10:38 Attending physician: Tejas Grayson MD Consults: 06/15/18 14:10 Hospitalist Consult Routine Comment: Consulting Provider: Anson Cortes Consulting Physician: Anson Cortes Reason for Consult: medical management Time Spent in preparation of Discharge (in minutes): 45 Hospital Course - Lab Results Lab Results: Most Recent Lab Values WBC 8.7 K/uL (4.8-10.8) D 06/16/18 08:09 RBC 4.00 Mil/uL (3.80-5.20) 06/16/18 08:09 Hgb 11.9 g/dL (11.0-16.0) D 06/16/18 08:09 Hct 34.3 % (34.0-47.0) 06/16/18 08:09 MCV 85.8 fL (81.0-99.0) 06/16/18 08:09 MCH 29.7 pg (27.0-31.0) 06/16/18 08:09 MCHC 34.6 g/dL (33.0-37.0) 06/16/18 08:09 RDW 14.2 % (11.5-14.5) 06/16/18 08:09 Plt Count 230 K/uL (130-400) 06/16/18 08:09 MPV 8.3 fL (7.2-11.7) 06/16/18 08:09 Neut % (Auto) 81.5 % (50.0-75.0) H 06/15/18 07:05 Lymph % (Auto) 11.4 % (20.0-40.0) L 06/15/18 07:05 [place] % (Auto) 6.2 % (0.0-10.0) 06/15/18 07:05 Eos % (Auto) 0.5 % (0.0-4.0) 06/15/18 07:05 Baso % (Auto) 0.4 % (0.0-2.0) 06/15/18 07:05 Neut # (Auto) 17.5 K/uL (1.8-7.0) H 06/15/18 07:05 Lymph # (Auto) 2.4 K/uL (1.0-4.3) 06/15/18 07:05 [place] # (Auto) 1.3 K/uL (0.0-0.8) H 06/15/18 07:05 Eos # (Auto) 0.1 K/uL (0.0-0.7) 06/15/18 07:05 Baso # (Auto) 0.1 K/uL (0.0-0.2) 06/15/18 07:05 Neutrophils % (Manual) 72 % (50-75) 06/15/18 07:05 Band Neutrophils % 9 % (0-2) H 06/15/18 07:05 Lymphocytes % (Manual) 12 % (20-40) L 06/15/18 07:05 Reactive Lymphs % 1 % (0-0) H 06/15/18 07:05 Monocytes % (Manual) 5 % (0-10) 06/15/18 07:05 Eosinophils % (Manual) 1 % (0-4) 06/15/18 07:05 Platelet Estimate Normal (NORMAL) 06/15/18 07:05 RBC Morphology Normal 06/15/18 07:05 pO2 54 mm/Hg (30-55) 06/16/18 05:48 VBG pH 7.42 (7.32-7.43) 06/16/18 05:48 VBG pCO2 44 mmHg (40-60) 06/16/18 05:48 VBG HCO3 27.3 mmol/L 06/16/18 05:48 VBG Total CO2 29.9 mmol/L (22-28) H 06/16/18 05:48 VBG O2 Sat (Calc) 93.1 % (40-65) H 06/16/18 05:48 VBG Base Excess 3.4 mmol/L (0.0-2.0) H 06/16/18 05:48 VBG Potassium 3.5 mmol/L (3.6-5.2) L 06/16/18 05:48 Sodium 138.0 mmol/l (132-148) 06/16/18 05:48 Chloride 105.0 mmol/L (98-107) 06/16/18 05:48 Glucose 219 mg/dl (65-105) H 06/16/18 05:48 Lactate 2.7 mmol/L (0.7-2.1) H 06/16/18 05:48 Sodium 136 mmol/L (132-148) 06/16/18 08:09 Potassium 3.6 mmol/L (3.6-5.2) 06/16/18 08:09 Chloride 100 mmol/L (98-107) 06/16/18 08:09 Carbon Dioxide 26 mmol/L (22-30) 06/16/18 08:09 Anion Gap 14 (10-20) 06/16/18 08:09 BUN 15 mg/dL (7-17) 06/16/18 08:09 Creatinine 0.5 mg/dL (0.7-1.2) L 06/16/18 08:09 Est GFR ( Amer) > 60 06/16/18 08:09 Est GFR (Non-Af Amer) > 60 06/16/18 08:09 POC Glucose (mg/dL) 285 mg/dL (65-110) H 06/15/18 21:33 Random Glucose 187 mg/dL (65-105) H D 06/16/18 08:09 Calcium 8.2 mg/dl (8.6-10.4) L 06/16/18 08:09 Total Bilirubin 0.3 mg/dL (0.2-1.3) 06/15/18 07:05 AST 33 U/L (14-36) 06/15/18 07:05 ALT 30 U/L (9-52) 06/15/18 07:05 Alkaline Phosphatase 163 U/L (38-126) H 06/15/18 07:05 Total Protein 8.2 g/dL (6.3-8.3) 06/15/18 07:05 Albumin 4.7 g/dL (3.5-5.0) 06/15/18 07:05 Globulin 3.5 gm/dL (2.2-3.9) 06/15/18 07:05 Albumin/Globulin Ratio 1.4 (1.0-2.1) 06/15/18 07:05 Amylase 84 U/L (30-110) 06/15/18 07:05 Lipase 109 U/L (23-300) 06/15/18 07:05 Venous Blood Potassium 3.5 mmol/L (3.6-5.2) L 06/16/18 05:48 Urine Color Yellow (YELLOW) 06/15/18 08:33 Urine Clarity Hazy (Clear) 06/15/18 08:33 Urine pH 5.0 (5.0-8.0) 06/15/18 08:33 Ur Specific [place] 1.021 (1.003-1.030) 06/15/18 08:33 Urine Protein 1+ mg/dL (NEGATIVE) H 06/15/18 08:33 Urine Glucose (UA) 1+ mg/dL (Normal) 06/15/18 08:33 Urine Ketones Negative mg/dL (NEGATIVE) 06/15/18 08:33 Urine Blood Negative (NEGATIVE) 06/15/18 08:33 Urine Nitrate Negative (NEGATIVE) 06/15/18 08:33 Urine Bilirubin Negative (NEGATIVE) 06/15/18 08:33 Urine Urobilinogen Normal mg/dL (0.2-1.0) 06/15/18 08:33 Ur Leukocyte Esterase 1+ [place]/uL (Negative) H 06/15/18 08:33 Urine WBC (Auto) 11 /hpf (0-5) H 06/15/18 08:33 Ur Squamous Epith Cells 4 /hpf (0-5) 06/15/18 08:33 Urine Bacteria Rare (<OCC) 06/15/18 08:33 Blood Type O POSITIVE 06/15/18 11:04 Antibody Screen Negative 06/15/18 11:04 - Hospital Course Hospital Course: 67yo F with acute appendicitis. Taken to the OR for laparoscopic appendectomy. Surgery was uncomplicated. Was admitted overnight for observation. WBC normalized and K improved. Medical consult was obtained for medical management. DM meds prescribed and patient to continue at home. Patient was cleared for discharge home. Discussed discharge instruction in detail with patient including follow up instructions. Patient expressed understanding and agrees with plan. All questions answered. Discharge Exam - Head Exam Head Exam: ATRAUMATIC, NORMAL INSPECTION, NORMOCEPHALIC - Eye Exam Eye Exam: EOMI, Normal appearance. absent: Scleral icterus - Respiratory Exam Respiratory Exam: NORMAL BREATHING PATTERN, UNREMARKABLE. absent: Respiratory Distress - Cardiovascular Exam Cardiovascular Exam: absent: JVD - GI/Abdominal Exam GI & Abdominal Exam: Soft. absent: Distended, Firm, Rebound, Rigid, Tenderness Additional comments: incisions clean, dry and intact. - Neurological Exam Neurological exam: Alert, Oriented x3 - Psychiatric Exam Psychiatric exam: Normal Affect, Normal Mood - Skin Skin Exam: Dry, Intact, Normal Color, Warm Discharge Plan - Discharge Medications Prescriptions: Alogliptin Benzoate [Alogliptin] 25 mg PO DAILY #30 tablet Glimepiride [Amaryl] 4 mg PO BID #60 tablet - Follow Up Plan Condition: STABLE Disposition: HOME/ ROUTINE Additional Instructions: Cleared for discharge as per Dr. Grayson - Follow up with Dr. Grayson in 10-14 days. Call for appointment - Use OTC ibuprofen for pain control - Okay to shower - Discharge instructions on chart Referrals: Tejas Grayson MD [Staff Provider] -
--- NOTE | 2018-06-17 09:47 | PCM.OP ---
Operative Report - Operative Report Date of Surgery/Procedure: 06/15/18 Time of Surgery/Procedure: 12:30 Surgeon: Tejas Grayson MD [place] Worker: Bipin Bhardwaj DO (PGY2 residentt) Anesthesia/Sedation: GETA; 1% lidocaine with epinephrine + 0.25% marcaine mix local Pre-Operative Diagnosis: Acute Appendicitis Type 2 Diabetes Post-Operative Diagnosis: Acute Appendicitis, without perforation Type 2 Diabetes Indication for Surgery: See main Operative Findings: See main Procedure/Operation Description: INDICATIONS FOR SURGERY: 67 year old female who presented to the emergency department earlier with 24 hours of abdominal pain and CT scan findings consistent with acute appendicitis. Risks and benefits of laparoscopic possible open, appendectomy discussed as documented in clinical chart. All questions answered and informed consent signed prior to operation. OPERATIVE FINDINGS: Long, retrocecal, inflamed appendix without evidence of perforation. Omental adhesions to anterior abdominal wall form previous SHOW GIRL incision. Appendix removed intact; Mesoappendiceal and cecal staple lines in tact without leak or bleeding at end of case. PROCEDURE PERFORMED: Laparoscopic Appendectomy Omental buttress of cecal staple line DETAILS OF PROCEDURE: The patient was given a preoperative dose of Zosyn 20 minutes prior to incision. SCD boots were placed for DVT prophylaxis. Secure straps placed above the knees. Left arm tucked at patients side in neutral position. Right arm placed out on padded armboard. An orogastric tube placed in order to empty the stomach after the induction of general anesthesia. Upper body warmer placed. No yoder used as patient voided prior to coming to OR. No hair removal necessary. The abdomen was prepped and draped in sterile fashion. Timeout was performed prior to incision. All skin incisions were made using an 11 blade scalpel after being pre-anesthetized with local anesthesia. Because of patients history of midline , abdominal entry was gained in the left upper quadrant. A 5mm optically viewing trocar with A 5mm 0-degree laparoscope placed in pal[place] point in the left upper quadrant. All layers of the abdominal wall were seen and peritoneal entry directly visualized. The abdomen was then insufflated with C02 pneumoperitoneum to 15mmhg. A 5mm 0-degree laparoscope was then inserted and the abdomen was generally inspected. There were no signs of injury from initial entry. We then placed 2 additional 5mm working ports under direct vision, one 5mm port in the supraumbilical midline and a 12mm port in suprapubic region. The abdomen was generally insepected and no other pathology found. Scant fluid in pelvis. See operative findings. We began by sweeping the small intestine out of the pelvis and easily visualized the cecum tracing the taenia down to the appendix and terminal ileum with identifcation of the fat/fold of treves. A mesenteric window was created bluntly in between base of appendix at cecum and mesoappendix. Bipoar energy device was used to ligate and divide appendiceal pedicle. Next a 45 mm blue load linear staple was used to divide the appendix at its base, being sure not to incorporate cecum. The specimen was placed in an Endocatch bag and removed from the 12mm trocar. The trocar reinserted and we next turned our attention to inspecting the staple line. The staple lines were carefully inspected and appeared hemostatic. Omentum was then draped over the suture line. The 12 mm port site was then closed with a transfascial suture passing and 0-vicryl suture placed in figure of eight fashion x1. The remaining ports and ports removed under direct vision. The abdomen was then desufflated. The skin was closed with 4-0 monocryl and dermabond. All sponge, needle and instrument counts were correct. The patient was extubated in the operating room, and taken to the recovery room in stable condition. I was present for the entirety of the operation. Estimated Blood Loss: 10mL Complications: none Specimen: Appendix Discharge & Condition: See main
--- NOTE | 2018-06-17 20:54 | CARD ---
APPROVED REPORT Date of service: 06/15/2018 EKG Measurement Heart [id number] <Conclusion> Normal sinus rhythm T wave abnormality, consider anterior ischemia Abnormal ECG
== END 2018-06-16 14:37 | disposition home or self-care (01) | DRG 343 ==
LOC: C.ER 06:26 → C.9E 10:38 → C.5S 11:25 → C.9E 12:22 → C.6T 14:42
PROVIDERS: ADMIT Surgery; ATTEND Surgery
PROC: 0DTJ4ZZ Resection of Appendix, Percutaneous Endoscopic Approach (ICD-10-PCS; principal; 2018-06-15 12:00)
DX: K35.80 Unspecified acute appendicitis (principal); E11.9 Type 2 diabetes mellitus without complications; K66.0 Peritoneal adhesions (postprocedural) (postinfection); Z91.14 Patient's other noncompliance with medication regimen